=== PATIENT | female | born 1955 | race Caucasian/White ===

== ENCOUNTER 2021-12-28 19:03 | Inpatient (IN) | payer MEDICARE, OTHER ==
[~2021-12-28] VITALS: Ht 165.1 cm; Wt 105.2 kg
[2021-12-28 19:44] LABS: HEMOGLOBIN 16.3 gm/dl (12.3-15.3); RED BLOOD COUNT 5.3 M/UL (4.00-5.10); WHITE BLOOD COUNT 9.8 K/UL (4.5-11.0)
[2021-12-28 20:12] LABS: BUN/CREATININE RATIO 19 (0-10)
[2021-12-28] MEDS ORDERED: LISINOPRIL30 MG PO (21:45)
[2021-12-28] MEDS ORDERED: AMLODIPINE BESY10 MG PO (21:46)
[2021-12-29 16:21] LABS: BUN/CREATININE RATIO 17 (0-10)
[2021-12-30 05:41] LABS: BUN/CREATININE RATIO 20 (0-10)
[2021-12-30 13:16] LABS: BUN/CREATININE RATIO 20 (0-10)
[2021-12-30] MEDS ORDERED: FLONASE 0.05% N16 GM (14:47)
[2021-12-30] MEDS ORDERED: HYDROCHLOROTHIA25 MG PO (14:48)
[2021-12-30] MEDS ORDERED: OMEPRAZOLE20 MG PO (14:51)
[2021-12-30] MEDS ORDERED: GLUCOPHAGE 500500 MG PO (14:51)
[2021-12-30] MEDS ORDERED: BRIMONIDINE TAR15 M1 EYEBOTH (14:54)
[2021-12-30] MEDS ORDERED: DORZOLAMIDE HCL10 ML EYEBOTH (14:55)
[2021-12-30] MEDS ORDERED: ASPIRIN81 MG PO (15:10)
[2021-12-30] MEDS ORDERED: LIPITOR40 MG PO (15:11)
[2021-12-30] MEDS ORDERED: PLAVIX 75 MG TA75 MG PO (15:11)
[2021-12-30] MEDS ORDERED: NITROGLYCERIN0.4 MG SL (15:25)
[2021-12-30] MEDS ORDERED: VASCEPA1 GM PO (21:44)
[2021-12-30] MEDS ORDERED: METOPROLOL SUCC25 MG PO (21:45)
[2021-12-30] MEDS ORDERED: HYDROCODON-ACE1 EAC2 PO (21:45)
[2021-12-30] MEDS ORDERED: IBUPROFEN800 MG PO (21:46)
[2021-12-30] MEDS ORDERED: FUROSEMIDE20 MG PO (21:47)
[2021-12-30] MEDS ORDERED: POTASSIUM CHLO10 ME1 PO (21:48)
== END 2021-12-30 16:32 | disposition home or self-care (01) | DRG 281 ==
LOC: ER1 19:03 → CDU 20:02 → CCU 20:02
PROVIDERS: Internal Medicine; Student in an Organized Health Care Education/Training Program; ADMIT Internal Medicine Interventional Cardiology
PROC: 4A023N7 Measurement of Cardiac Sampling and Pressure, Left Heart, Percutaneous Approach (ICD-10-PCS; principal; 2021-12-28)
PROC: B2111ZZ Fluoroscopy of Multiple Coronary Arteries using Low Osmolar Contrast (ICD-10-PCS; 2021-12-28)
DX: I21.19 ST elevation (STEMI) myocardial infarction involving other coronary artery of inferior wall (principal); I16.9 Hypertensive crisis, unspecified; E66.9 Obesity, unspecified; I10 Essential (primary) hypertension; G47.33 Obstructive sleep apnea (adult) (pediatric); E87.6 Hypokalemia; E11.9 Type 2 diabetes mellitus without complications; Z68.38 Body mass index [BMI] 38.0-38.9, adult; Z90.710 Acquired absence of both cervix and uterus; Z90.49 Acquired absence of other specified parts of digestive tract; Z82.49 Family history of ischemic heart disease and other diseases of the circulatory system; Z98.890 Other specified postprocedural states; Z91.041 Radiographic dye allergy status; Z79.899 Other long term (current) drug therapy; Z79.82 Long term (current) use of aspirin
CPT/HCPCS: ECHO; 36415; 80048; 80053; 80061; 82306; 82550; 82553; 82607; 82652; 82746; 82962; 83036; 83735; 84100; 84439; 84443; 84484; 85025; 85347; 85610; 85730; 93005; 93306; 99152; 99153; 99285; C1769; C1887; C1894; J0461; J1644; J2250; J2370; J3010; J7040; Q9965; U0002